=== PATIENT | female | born 1950 | race Caucasian/White ===

== ENCOUNTER 2016-10-24 08:05 | Outpatient (CLI) | payer MEDICARE, OTHER ==
[2013-08-04 16:47] VITALS: BP 230/112
== END 2016-10-24 08:06 ==
LOC: POD 08:05
PROVIDERS: ATTEND Podiatrist Public Medicine
DX: B35.1 Tinea unguium (principal); L60.0 Ingrowing nail; M79.674 Pain in right toe(s); M79.675 Pain in left toe(s)
CPT/HCPCS: 11721; G0463

== ENCOUNTER 2017-01-23 10:49 | Outpatient (CLI) | payer MEDICARE, OTHER ==
[2013-08-04 16:47] VITALS: BP 230/112
== END 2017-01-23 10:50 ==
LOC: POD 10:49
PROVIDERS: ATTEND Podiatrist Public Medicine
DX: B35.1 Tinea unguium (principal); L60.0 Ingrowing nail; M79.674 Pain in right toe(s); M79.675 Pain in left toe(s)
CPT/HCPCS: 11721; G0463

== ENCOUNTER 2017-04-24 10:17 | Outpatient (CLI) | payer MEDICARE, OTHER ==
[2013-08-04 16:47] VITALS: BP 230/112
== END 2017-04-24 10:18 ==
LOC: POD 10:17
PROVIDERS: ATTEND Podiatrist Public Medicine
DX: B35.1 Tinea unguium (principal); L60.0 Ingrowing nail; M79.674 Pain in right toe(s); M79.675 Pain in left toe(s)
CPT/HCPCS: 11721; G0463

== ENCOUNTER 2017-07-24 10:10 | Outpatient (CLI) | payer MEDICARE, OTHER ==
[2013-08-04 16:47] VITALS: BP 230/112
== END 2017-07-24 10:12 ==
LOC: POD 10:10
PROVIDERS: ATTEND Podiatrist Public Medicine
DX: B35.1 Tinea unguium (principal); L60.0 Ingrowing nail; M79.674 Pain in right toe(s); M79.675 Pain in left toe(s)
CPT/HCPCS: 11721; G0463

== ENCOUNTER 2017-10-30 08:35 | Outpatient (CLI) | payer MEDICARE, OTHER ==
[2013-08-04 16:47] VITALS: BP 230/112
== END 2017-10-30 08:36 ==
LOC: POD 08:35
PROVIDERS: ATTEND Podiatrist Public Medicine
DX: B35.1 Tinea unguium (principal); L60.0 Ingrowing nail; M79.674 Pain in right toe(s); M79.675 Pain in left toe(s)
CPT/HCPCS: 11721; G0463

== ENCOUNTER 2018-01-29 08:55 | Outpatient (CLI) | payer MEDICARE, OTHER ==
[2013-08-04 16:47] VITALS: BP 230/112
== END 2018-01-29 08:56 ==
LOC: POD 08:55
PROVIDERS: ATTEND Podiatrist Public Medicine
DX: B35.1 Tinea unguium (principal); L60.0 Ingrowing nail; M79.674 Pain in right toe(s); M79.675 Pain in left toe(s)
CPT/HCPCS: 11721; G0463